=== PATIENT | male | born 1995 | race Caucasian/White ===

== ENCOUNTER 2018-07-26 15:08 | Emergency (ER) | payer BC ==
[2018-07-26 15:24] VITALS: PULSE 101; O2SAT 100
[2018-07-26] MEDS ORDERED: Adacel Vial IM ONE ×2 (15:29→15:32)
--- NOTE | 2018-07-26 15:29 | ERPHSYRPT ---
- History of Present Illness Time Seen by Provider: 07/26/18 15:26 Source: patient, family Exam Limitations: no limitations Patient Subjective Stated Complaint: right thumb closed in car door on monday. pain and throbbing. blood under the nail and swelling Triage Nursing Assessment: alert with c/o pain to right thumb agfter getting caught in car door Monday.. states throbbing and swelling.. noted bruising under the thumbnail. + radial pulse.. no other injuries Physician History: injury to right thumb last week end with subungual heme tender - no other c/u of injury tendon and neurovasc intact. Occurred: days ago Method of Injury: direct blow Quality: constant, sharpness, throbbing Severity of Pain-Max: moderate Severity of Pain-Current: moderate Extremities Pain Location: thumb: right Modifying Factors: Improves With: cold therapy, immobilization, movement Associated Symptoms: none Allergies/Adverse Reactions: No Known Drug Allergies Allergy (Verified 07/26/18 15:30) Hx Tetanus, Diphtheria Vaccination/Date Given: Yes (up to date) Hx Influenza Vaccination/Date Given: No Hx Pneumococcal Vaccination/Date Given: No Immunizations Up to Date: (unknown) - Review of Systems Constitutional: No Fever, No Chills Eyes: No Symptoms Ears, Nose, & Throat: No Symptoms Respiratory: No Cough, No Dyspnea Cardiac: No Chest Pain, No Edema, No Syncope Abdominal/Gastrointestinal: No Abdominal Pain, No Nausea, No Vomiting, No Diarrhea Genitourinary Symptoms: No Dysuria Musculoskeletal: Injury, No Back Pain, No Neck Pain Skin: No Rash Neurological: No Dizziness, No Focal Weakness, No Sensory Changes Psychological: No Symptoms Endocrine: No Symptoms All Other Systems: Reviewed and Negative - Past Medical History Pertinent Past Medical History: Yes Neurological History: No Pertinent History ENT History: No Pertinent History Cardiac History: No Pertinent History Respiratory History: No Pertinent History Endocrine Medical History: No Pertinent History Musculoskeletal History: No Pertinent History GI Medical History: No Pertinent History History: No Pertinent History Psycho-Social History: No Pertinent History Male Reproductive Disorders: No Pertinent History Other Medical History: mrsa - Past Surgical History Past Surgical History: Yes Neuro Surgical History: No Pertinent History Cardiac: No Pertinent History Respiratory: No Pertinent History Gastrointestinal: Appendectomy Genitourinary: No Pertinent History Musculoskeletal: No Pertinent History Male Surgical History: No Pertinent History - Social History Smoking Status: Former smoker Exposure to second hand smoke: No Alcohol Use: None Drug Use: none Patient Lives Alone: No Significant Family History: no pertinent family hx - Nursing Vital Signs Nursing Vital Signs: Initial Vital Signs Temperature 98.6 F 07/26/18 15:17 Pulse Rate 101 H 07/26/18 15:17 Respiratory Rate 16 07/26/18 15:17 Blood Pressure 142/91 07/26/18 15:17 O2 Sat by Pulse Oximetry 100 07/26/18 15:17 Pain Scale Pain Intensity 7 - Physical Exam General Appearance: alert Eyes, Ears, Nose, Throat Exam: moist mucous membranes Neck Exam: non-tender, supple Cardiovascular/Respiratory Exam: chest non-tender, normal breath sounds, regular rate/rhythm, no respiratory distress Abdominal Exam: non-tender, No guarding Back Exam: normal inspection, No vertebral tenderness Shoulder Exam: normal inspection, non-tender, no evidence of injury, normal ROM Elbow/Forearm Exam: normal inspection, non-tender, no evidence of injury, normal ROM Wrist Exam: normal inspection, non-tender, no evidence of injury, normal ROM Hand Exam: ecchymosis, nail injury, soft tissue tenderness, swelling DTR - Upper Extremity Exam: bicep (R): 2+, bicep (L): 2+, tricep (R): 2+, tricep (L): 2+ Neuro/Tendon Exam: normal sensation, normal motor functions Mental Status Exam: alert, oriented x 3, cooperative Skin Exam: normal color, warm, dry SpO2 Interpretation: normal SpO2: 100 Oxygen Delivery: Room Air Procedures - Splinting Location of Splint: Right, Hand Splint Applied By: ED Nurse Pre-Proc Neuro Vasc Exam: normal Post-Proc Neuro Vasc Exam: neurovascular intact, unchanged from pre-exam - Course Nursing assessment & vital signs reviewed: Yes - Radiology Exams Right Hand X-ray Interpretation: Interpreted by me, Reviewed by me, Non-displaced Fracture (possible nondisp fx distal phal right thumb) Ordered Tests: Active Orders 24 hr Category Date Time Status HAND (MINIMUM 3 VIEWS) Stat Exams 07/26/18 15:30 Taken Medication Summary Discontinued Medications Generic Name Dose Route Start Last Admin Trade Name Freq PRN Reason Stop Dose Admin Diphtheria/Tetanus/Acell Pertussis 0.5 ml 07/26/18 15:29 07/26/18 15:34 Adacel Vial IM 07/26/18 15:30 0.5 ml .ONCE ONE Administration Diphtheria/Tetanus/Acell Pertussis Confirm 07/26/18 15:32 Adacel Vial Administered 07/26/18 15:33 Dose 0.5 ml IM .STK-MED ONE - Progress Progress: improved, re-examined Counseled pt/family regarding: diagnosis, need for follow-up, rad results - Departure Time of Disposition: 16:26 Departure Disposition: Home Clinical Impression: Nondisplaced fracture of phalanx of thumb Condition: Good Critical Care Time: No Referrals: LEILA TORRES [Primary Care Provider] - Instructions: Finger Fracture (DC) Additional Instructions: soak in epsom salts daily and replace dressing/splint final x-ray report monday - followup with your DrFlor next week as referral needed if fracture . not clearly a fracture and need to wait on report but looks suspicious. Prescriptions: Cephalexin Mh 500 mg [Keflex 500 mg] 500 mg PO STAT #1 capsule Cephalexin Mh 500 mg [Keflex 500 mg] 500 mg PO QID #20 capsule Hydrocodone/Acetaminophen [[place] 5-325 Tablet] 1 each PO Q4-6HPRN PRN #10 tablet MDD 4 tabs PRN Reason: Pain
[2018-07-26] MEDS ORDERED: KEFLEX 500 MG ONE (16:26)
[2018-07-26] MEDS ORDERED: NORCO 5/325 MG PO ONE (16:26)
[2018-07-26] MEDS ORDERED: KEFLEX 500 MG PO ONE (16:26)
[2018-07-26] MEDS ORDERED: NORCO 5/325 MG ONE (16:27)
[2018-07-26 16:57] VITALS: BP 138/88
--- NOTE | 2018-07-26 18:29 | XRAY ---
Indication: Thumb pain following injury 5 days ago. Comparison: None 3 views of the right hand obtained. No bony, articular, or soft tissue abnormalities.
== END 2018-07-26 16:56 | disposition home or self-care (01) ==
LOC: ED 15:08
DX: S62.501A Fracture of unspecified phalanx of right thumb, initial encounter for closed fracture (principal); W23.0XXA Caught, crushed, jammed, or pinched between moving objects, initial encounter
CPT/HCPCS: 73130; 90471; 90715; 99283; A9270-GY

== ENCOUNTER 2020-09-19 04:48 | Emergency (ER) | payer BC ==
--- NOTE | 2020-09-19 05:21 | ERPHSYRPT ---
- History of Present Illness Time Seen by Provider: 09/19/20 05:10 Source: patient, police Exam Limitations: intoxication (But awake alert and oriented) Patient Subjective Stated Complaint: "I drank too much and got caught." Triage Nursing Assessment: Patient presented intoxicated reported that he quit drinking roughly 1 hour prior to being pulled over. Denied any injuries. Denied pain, chest pain, dyspnea, shortness of breath, headache, abdominal piain, nausea/vomiting. Pupils 3mm brisk direct and consensual reaction to light. Oral mucosa pink/moist without any airway obstructions. Neck supple without JVD. Symmetrical chest expansion. Heart tones S1 S2 regular rate and rhythm without extra sounds. Lungs clear to auscultation throughout all eisenberg without adventitious sounds. Peripheral pulses +2 bilateral. Gait steady. Abdomen soft non-distene. Physician History: This is a 24-year-old white male who was intoxicated with alcohol and was pulled over by law enforcement. He had an elevated blood alcohol level and is here for medical clearance for group home. He has no complaints whatsoever. He ambulated into the group home from lab on his own without any difficulty. Timing/Duration: today Severity: moderate Associated Symptoms: denies symptoms Allergies/Adverse Reactions: No Known Drug Allergies Allergy (Verified 09/19/20 04:53) Home Medications: No Reportable Medications [No Reported Medications] 09/19/20 [History] Hx Tetanus, Diphtheria Vaccination/Date Given: Yes (up to date) Hx Influenza Vaccination/Date Given: No Hx Pneumococcal Vaccination/Date Given: No Travel Risk - International Travel Have you traveled outside of the country in past 3 weeks: No - Coronavirus Screening Are you exhibiting any of the following symptoms?: No Close contact with a COVID-19 positive Pt in past 14-21 Days: No - Review of Systems Constitutional: No Symptoms Eyes: No Symptoms Ears, Nose, & Throat: No Symptoms Respiratory: No Symptoms Cardiac: No Symptoms Abdominal/Gastrointestinal: No Symptoms Genitourinary Symptoms: No Symptoms Musculoskeletal: No Symptoms Skin: No Symptoms Neurological: No Symptoms Psychological: Other (Alcohol intoxication) Endocrine: No Symptoms Hematologic/Lymphatic: No Symptoms Immunological/Allergic: No Symptoms All Other Systems: Reviewed and Negative - Past Medical History Pertinent Past Medical History: Yes Neurological History: No Pertinent History ENT History: No Pertinent History Cardiac History: No Pertinent History Respiratory History: No Pertinent History Endocrine Medical History: No Pertinent History Musculoskeletal History: No Pertinent History GI Medical History: No Pertinent History History: No Pertinent History Psycho-Social History: No Pertinent History Male Reproductive Disorders: No Pertinent History Other Medical History: mrsa - Past Surgical History Past Surgical History: Yes Neuro Surgical History: No Pertinent History Cardiac: No Pertinent History Respiratory: No Pertinent History Gastrointestinal: Appendectomy Genitourinary: No Pertinent History Musculoskeletal: No Pertinent History Male Surgical History: No Pertinent History - Social History Smoking Status: Current every day smoker How long have you smoked: 7 Exposure to second hand smoke: No Alcohol Use: None Drug Use: none Patient Lives Alone: No Significant Family History: no pertinent family hx - Nursing Vital Signs Nursing Vital Signs: Initial Vital Signs Temperature 98.4 F 09/19/20 04:48 Pulse Rate 89 09/19/20 04:48 Respiratory Rate 16 09/19/20 04:48 Blood Pressure 141/91 09/19/20 04:48 O2 Sat by Pulse Oximetry 96 09/19/20 04:48 Pain Scale Pain Intensity 0 - Physical Exam General Appearance: no apparent distress, alert, other (Appears mildly intoxicated) Eye Exam: PERRL/EOMI, eyes nml inspection Ears, Nose, Throat Exam: normal ENT inspection, moist mucous membranes Neck Exam: normal inspection, non-tender, supple, full range of motion Respiratory Exam: normal breath sounds, lungs clear, airway intact, No chest tenderness, No respiratory distress Cardiovascular Exam: regular rate/rhythm, normal heart sounds, normal peripheral pulses Gastrointestinal/Abdomen Exam: soft, normal bowel sounds, No tenderness Rectal Exam: not done Back Exam: normal inspection, normal range of motion, No CVA tenderness, No vertebral tenderness Extremity Exam: normal inspection, normal range of motion, pelvis stable Neurologic Exam: alert, oriented x 3, cooperative, caustic strength inspector II-XII nml as tested, normal mood/affect, nml cerebellar function, nml station & gait, sensation nml, intoxicated appearance (Mildly) Skin Exam: normal color, warm, dry Lymphatic Exam: No adenopathy SpO2 Interpretation: normal SpO2: 96 O2 Delivery: Room Air - Course Nursing assessment & vital signs reviewed: Yes - Progress Progress: unchanged Counseled pt/family regarding: diagnosis - Departure Departure Disposition: Shelter/Assisted Clinical Impression: Acute alcohol intoxication Condition: Stable Critical Care Time: No Referrals: LEILA TORRES [Primary Care Provider] -
[2020-09-19 05:33] VITALS: BP 126/104; PULSE 86; O2SAT 98
== END 2020-09-19 05:30 ==
LOC: ED 04:48
DX: F10.129 Alcohol abuse with intoxication, unspecified (principal)
CPT/HCPCS: 99283